=== PATIENT | female | born 1955 | race Caucasian/White ===

== ENCOUNTER → 2019-04-09 16:04 | Outpatient (CLI) | payer BC, SELFPAY ==
--- NOTE | 2019-04-09 16:18 | MM_ITS ---
MM Dig screening mamm BI w/CAD ORDERING PHYSICIAN : Sourav Hale MD PATIENT AGE: 63 years GENDER: Female COMPARISON: Baseline study with no previous for comparison. INDICATION: Routine screening mammogram. No hormones. No new complaints . Noncontributory family history.. TECHNIQUE: Standard CC and MLO images were obtained. R2 CAD reviewed. FINDINGS: Lower density breast bilaterally with generalized fatty replacement. No dominant mass nor suspicious calcifications either breast. No previous studies on this patient for comparison. Baseline mammogram. Right breast. Small benign dense calcification superior retroareolar region. Not of concern. Also note small likely dermal calcification towards the inferior mammary fold. This can be followed Left breast is ---------IMPRESSION: 1. No areas of significant concern Low-density breast. No mass lesions. . Follow-up in one year recommended BI-RADS Category: 2 Benign Finding(s) RECOMMENDED FOLLOW-UP: 1YR 1 YEAR FOLLOW-UP (A letter has been sent to the patient regarding results of the study.)
== END ==
PROVIDERS: PCP Family Medicine; Visit Provider Family Medicine
DX: Z12.31 Encounter for screening mammogram for malignant neoplasm of breast (principal)
CPT/HCPCS: 77067

== ENCOUNTER → 2019-07-24 13:08 | Outpatient (CLI) | payer BC, SELFPAY ==
[2019-07-24 13:11] LABS: Adenovirus F 40/41, stool Not Detected (NotDetected); Astrovirus Not Detected (NotDetected); Campylobacter Not Detected (NotDetected); Clostridium Difficile A/B, PCR Not Detected (NotDetected); Cryptosporidium Not Detected (NotDetected); Cyclospora Cayetanesis Not Detected (NotDetected); Entamoeba histolytica Not Detected (NotDetected); Enteroaggregative E coli Not Detected (NotDetected); Enteropathogenic E coli Not Detected (NotDetected); Enterotoxigenic E coli Not Detected (NotDetected); Giardia lamblia Not Detected (NotDetected); Plesimonas Shigalloides, PCR Not Detected (NotDetected); Rotavirus A Not Detected (NotDetected); Salmonella, PCR Not Detected (NotDetected); Sapovirus Not Detected (NotDetected); Shiga-like toxin E coli Not Detected (NotDetected); Shigella Enterovasive E coli Not Detected (NotDetected); Vibrio Cholerae Not Detected (NotDetected); Vibrio, PCR Not Detected (NotDetected); Yersinia Entercolitica, PCR Not Detected (NotDetected)
[2019-07-24 16:20] LABS: Norovirus Detected (NotDetected)
== END ==
PROVIDERS: Visit Provider Family Medicine
DX: K52.9 Noninfective gastroenteritis and colitis, unspecified (principal)
CPT/HCPCS: 87507

== ENCOUNTER → 2019-12-11 10:23 | Outpatient (CLI) | payer BC, SELFPAY ==
--- NOTE | 2019-12-11 10:31 | MR_ITS ---
PROCEDURE: MR HEAD/BRAIN WO/W CON CLINICAL INDICATION: VERTIGO, NAUSEA, BLURRY VISION, POSITIVE ROMBERG TEST Severe headache COMPARISON: No exams were available for comparison TECHNIQUE: Routine multiplanar multi echo sequences are performed without and with gadolinium enhancement. FINDINGS: No midline shift, mass effect, intracranial hemorrhage, or hydrocephalus. No evidence of acute infarction The cerebellopontine angles, cerebellum, and brainstem are unremarkable. There is normal bills-white matter differentiation with no abnormal white matter signal intensity evident. No enhancing lesions are evident. The pituitary, optic chiasm, corpus callosum, and craniocervical junction have an unremarkable appearance. No mastoid effusion or sinus air-fluid level. IMPRESSION: Negative MRI of the brain without and with contrast Dictated by: Du Condon MD 12/12/2019 15:43 Electronically signed by Du Condon MD in [place] 12/12/2019 15:43
== END ==
PROVIDERS: PCP Family Medicine; Visit Provider Physician Assistant
DX: R42 Dizziness and giddiness (principal); R11.0 Nausea; H53.8 Other visual disturbances; R51 Headache; R29.818 Other symptoms and signs involving the nervous system
CPT/HCPCS: 70553; A9576

== ENCOUNTER → 2019-12-18 09:35 | Outpatient (POV) | payer BC, SELFPAY | PROVIDERS: Visit Provider Otolaryngology | DX: Z00.00 Encounter for general adult medical examination without abnormal findings (principal) ==

== ENCOUNTER 2020-01-31 14:00 | Outpatient (RCR) | payer BC, SELFPAY | END 2020-01-31 14:20 | disposition home or self-care (01) | LOC: PT 14:00 | PROVIDERS: Visit Provider Otolaryngology | DX: R42 Dizziness and giddiness (principal); H81.11 Benign paroxysmal vertigo, right ear | CPT/HCPCS: 97112; 97163 ==

== ENCOUNTER → 2020-03-18 12:55 | Outpatient (CLI) | payer BC, SELFPAY ==
[2020-03-18 13:00] LABS: Adenovirus F 40/41, stool Not Detected (NotDetected); Astrovirus Not Detected (NotDetected); Campylobacter Not Detected (NotDetected); Cryptosporidium Not Detected (NotDetected); Cyclospora Cayetanesis Not Detected (NotDetected); Entamoeba histolytica Not Detected (NotDetected); Enteroaggregative E coli Not Detected (NotDetected); Enteropathogenic E coli Not Detected (NotDetected); Enterotoxigenic E coli Not Detected (NotDetected); Giardia lamblia Not Detected (NotDetected); Norovirus Not Detected (NotDetected); Plesimonas Shigalloides, PCR Not Detected (NotDetected); Rotavirus A Not Detected (NotDetected); Salmonella, PCR Not Detected (NotDetected); Sapovirus Not Detected (NotDetected); Shiga-like toxin E coli Not Detected (NotDetected); Shigella Enterovasive E coli Not Detected (NotDetected); Vibrio Cholerae Not Detected (NotDetected); Vibrio, PCR Not Detected (NotDetected); Yersinia Entercolitica, PCR Not Detected (NotDetected)
[2020-03-18 18:22] LABS: Clostridium Difficile A/B, PCR Detected (NotDetected)
== END ==
PROVIDERS: Visit Provider Family Medicine
DX: R19.7 Diarrhea, unspecified (principal); A04.72 Enterocolitis due to Clostridium difficile, not specified as recurrent
CPT/HCPCS: 87507

== ENCOUNTER → 2020-04-12 08:51 | Outpatient (CLI) | payer BC, SELFPAY ==
[2020-04-12 09:45] LABS: Blood Urea Nitrogen 10 mg/dl (7-17); Estimated Glomerular Filt Rate 56 ml/min (>60); GFR (African American) 68 ML/MIN (>60)
== END ==
PROVIDERS: Visit Provider Family Medicine
DX: R10.13 Epigastric pain (principal)
CPT/HCPCS: 36415; 82565; 84520

== ENCOUNTER → 2020-04-14 09:19 | Outpatient (CLI) | payer BC, SELFPAY ==
--- NOTE | 2020-04-14 09:28 | CT_ITS ---
PROCEDURE: CT ABDOMEN W CON CLINICAL HISTORY: EPIGASTRIC PAIN Epigastric pain with nausea, recent C diff infection, diarrhea COMPARISON: No exams were available for comparison TECHNIQUE: Axial images obtained with sagittal and coronal reformats. All CT scans at the facility use one or more dose reduction, viz: automated exposure control, ma/kV adjustment per patient size (including targeted exams where dose is matched to indication, i.e. head), or iterative reconstruction technique. FINDINGS: There is mild fatty infiltration of the liver. There are post cholecystectomy changes with mild biliary ectasia. There is calcification of the mitral valve annulus. The spleen, adrenal glands, and pancreas have an unremarkable appearance. There is mild thickening of the wall of the stomach at the gastric antrum with mild enhancement of the mucosa. No renal or ureteral calculi. No hydronephrosis. No intestinal obstruction or free air. The pelvis is not included in the exam. No acute bony findings. No evidence of aortic aneurysm. No evidence of celiac or SMA stenosis IMPRESSION: There is thickening of the antrum of the stomach with enhancement of the mucosa suggesting gastritis. Suggest follow-up to confirm resolution. Fatty infiltration of the liver Prior cholecystectomy Dictated by: Du Condon MD 04/15/2020 12:30 Electronically signed by Du Condon MD in [facility] 04/15/2020 12:30
== END ==
PROVIDERS: Visit Provider Family Medicine
DX: R10.13 Epigastric pain (principal)
CPT/HCPCS: 74160; Q9967

== ENCOUNTER → 2020-04-24 08:21 | Outpatient (CLI) | payer BC, SELFPAY ==
[2020-04-24 10:21] LABS: Coronavirus 19 IgG Antibody Negative (Negative); Coronavirus 19 IgM Antibody Negative (Negative)
== END ==
PROVIDERS: Visit Provider Internal Medicine Gastroenterology
DX: Z01.818 Encounter for other preprocedural examination (principal)
CPT/HCPCS: 36415; 86328

== ENCOUNTER 2020-04-25 06:42 | Day surgery (SDC) | payer BC, SELFPAY ==
--- NOTE | 2020-04-23 11:35 | SUR.PREOP ---
04/23/2020 @ 9318--PHONE CALL MADE TO PATIENT. PATIENT UNDERSTANDS THAT LAB WORK AND COVID TESTING NEEDS TO BE COMPLETED @ 0800 ON 04/24/2020. PATIENT UNDERSTANDS IF LAB WORK AND COVID-19 TESTS ARE NOT COMPLETED BY 12PM ON THAT DATE, THE SURGERY SCHEDULED WILL BE CANCELLED AND RESCHEDULED FOR ANOTHER TIME.
[2020-04-24 14:29] VITALS: BMI 34.8
[2020-04-25] VITALS (8 sets, daily range): BP systolic 101–118; BP diastolic 68–76; PULSE 64–82; RESP 18; TEMP 36.4–36.6; O2SAT 93–98
--- NOTE | 2020-04-25 07:43 | HMH.PROC ---
[facility] Procedure Note Procedure Note:: Upper Endoscopy Procedure Report: Esophagogastroduodenoscopy with cold biopsies Endoscopost: Jd Martell II, MD Referring Physician: Drew Hale MD Date of Procedure: April 25, 2020 Equipment: Olympus GIF 180 standard upper endoscope Sedation: MAC sedation Indications: Mrs. Orourke is a 64-year-old female who reports having C. difficile 3 months ago. She was treated with vancomycin. Subsequent to this she developed more excruciating epigastric abdominal pain. She states that she will develop postprandial nausea followed by epigastric pain and dyspepsia. She has had moderate bloating and gassiness. She also reports early satiety. She reports no heartburn, reflux, belching or dysphagia. She still has 1-3 bowel movements daily that are loose. She often has incomplete bowel evacuation. The patient did have a CT scan of the abdomen and pelvis that showed some thickening of the distal stomach consistent with antral gastritis. EGD is performed for further evaluation. The patient has had some weight loss. The patient's last colonoscopy was more than 5 years ago in [place]. The patient is a longstanding diabetic (type 2 diabetes mellitus). Procedure: Prior to the procedure, a history and physical exam was performed, and patient's medications and allergies were reviewed. The risks, benefits and alternatives of the sedation and procedure were discussed with the patient. All questions were answered and informed consent was obtained. The patient was brought to the procedure room. Patient identification and proposed procedure were verified by the physician and the nurse. The patient was placed in a left lateral decubitus position and the scope was passed under direct vision. Throughout the procedure, the patient's blood pressure, pulse, and oxygen saturations were monitored continuously. The upper GI endoscopy was accomplished without difficulty. The patient tolerated the procedure well. Findings: The scope was passed directly into the upper esophagus and advanced to the third portion of the duodenum. There was some duodenal lymphoid stasis but otherwise there was no evidence of any other mucosal abnormalities of the post bulbar duodenum. The scope was withdrawn through a normal duodenal bulb and pylorus into the stomach. There was marked retention of solid food in the antrum body and fundus consistent with gastric dysmotility and probable gastroparesis. There was some mild linear reactive gastropathy of the antrum. Cold biopsies were obtained. There was evidence of some chronic atrophic gastritis of the body and fundus of the stomach. Cold biopsies were taken from the proximal body of the stomach to rule out atrophic gastritis. Upon retroflexion there was no hiatal hernia. The scope was then withdrawn into the esophagus. There was no evidence of reflux esophagitis or Ballesteros's. There was no evidence of strictures or esophageal candidiasis. The remainder of the esophageal mucosa was normal. Impression: 1. Probable diabetic gastroparesis (retained gastric bezoar with evidence of gastric dysmotility) 2. Mild chronic atrophic gastritis with mild antral reactive gastropathy Plan: I will follow-up the biopsies. I will likely place the patient on metoclopramide. If the patient has atrophic gastritis, she has achlorhydria and I would discontinue the omeprazole. I would also consider stopping hyoscyamine which would reduce motility. We will discuss additional treatment of her diarrhea. She should be on Florastor (Saccharomyces) which is directly inhibitive to C. difficile. We will discuss additional treatment options.
[2020-04-25 08:57] LABS: POC Glucose,Bedside 159 (70-110)
== END 2020-04-25 09:34 | disposition home or self-care (01) ==
LOC: OUTP 06:43
PROVIDERS: PCP Family Medicine; Visit Provider Internal Medicine Gastroenterology
PROC: 0DJ08ZZ Inspection of Upper Intestinal Tract, Via Natural or Artificial Opening Endoscopic (ICD-10-PCS; CPT 43235; principal; 2020-04-25 08:00)
DX: K59.8 Other specified functional intestinal disorders (principal); K31.9 Disease of stomach and duodenum, unspecified; K29.40 Chronic atrophic gastritis without bleeding
CPT/HCPCS: 43239; 82962

== ENCOUNTER → 2020-06-12 10:45 | Outpatient (CLI) | payer BC, SELFPAY ==
[2020-06-13 17:12] LABS: Antiparietal Cell Antibody 84.6 Units (0.0-20.0)
== END ==
PROVIDERS: Visit Provider Specialist
DX: E53.8 Deficiency of other specified B group vitamins (principal)
CPT/HCPCS: 36415; 83516; 86340

== ENCOUNTER → 2020-06-16 13:07 | Outpatient (POV) | payer BC, SELFPAY | PROVIDERS: PCP Family Medicine; Visit Provider Nurse Practitioner Family | DX: Z00.00 Encounter for general adult medical examination without abnormal findings (principal) ==

== ENCOUNTER → 2020-06-23 09:08 | Outpatient (CLI) | payer BC, SELFPAY ==
--- NOTE | 2020-06-23 09:14 | NM_ITS ---
PROCEDURE: NM GASTRIC EMPTYING STUDY CLINICAL INDICATION: BLOATING,ABD PAIN,CONSTIPATION,RECTAL BLEEDING,DYSPEPSIA COMPARISON: No exams were available for comparison FINDINGS: Dose: 0.61 mCi technetium sulfur colloid in radial labeled meal. The 1/2 emptying time is normal at 68 minutes. 65 percent of the gastric contents had emptied at 90 minutes. Dynamic images show no evidence of gastroesophageal reflux. IMPRESSION: Normal gastric emptying time Dictated by: Du Condon MD 06/24/2020 07:20 Electronically signed by Du Condon MD in [place] 06/24/2020 07:20
--- NOTE | 2020-06-23 10:16 | HMH.ITSHM ---
Current Home Medications as stated by this patient Carol Orourke or housing management representative. [] levothyrxion lisinopril metformin
== END ==
PROVIDERS: PCP Family Medicine; Visit Provider Nurse Practitioner Family
DX: R10.84 Generalized abdominal pain (principal); R14.0 Abdominal distension (gaseous); K30 Functional dyspepsia; K59.00 Constipation, unspecified; K62.5 Hemorrhage of anus and rectum; Z12.11 Encounter for screening for malignant neoplasm of colon
CPT/HCPCS: 78264; A9541

== ENCOUNTER → 2020-07-15 09:50 | Outpatient (POV) | payer BC, SELFPAY ==
[2020-07-15 12:52] LABS: Coronavirus 19 IgG Antibody Negative (Negative); Coronavirus 19 IgM Antibody Negative (Negative)
== END ==
PROVIDERS: Internal Medicine Gastroenterology; Visit Provider Otolaryngology
DX: Z01.89 Encounter for other specified special examinations (principal); Z12.11 Encounter for screening for malignant neoplasm of colon
CPT/HCPCS: 36415; 86328

== ENCOUNTER 2020-07-18 06:48 | Day surgery (SDC) | payer BC, SELFPAY ==
[2020-07-09 10:33] VITALS: BMI 35.7
[2020-07-18] VITALS (7 sets, daily range): BP systolic 95–142; BP diastolic 52–80; PULSE 75–94; RESP 16–18; TEMP 36.2; O2SAT 97–98
[2020-07-18 07:31] LABS: POC Glucose,Bedside 204 (70-110)
--- NOTE | 2020-07-18 07:41 | SUR.PREOP ---
FSBS 204 R FEEBACK ONCOLOGY NURSE NAVIGATOR NOTIFIED, NO NEW ORDERS RECEIVED
--- NOTE | 2020-07-18 08:05 | P.PCN_ITS ---
[facility] Procedure Note Procedure Note:: Colonoscopy Procedure Report: Colonoscopy with cold snare polypectomy and monopolar coagulation/ablation to destruction of internal hemorrhoids Endoscopist: Jd Martell II, MD Referring physician: Gunnar Hale MD Date of Procedure: July 18, 2020 Equipment: Olympus 180 variable stiffness pediatric colonoscope Sedation: MAC sedation Indication: Mrs. Orourke is a 65-year-old female who is here for follow-up screening/surveillance colonoscopy. Her last colonoscopy was 5 years ago. She has had some fairly frequent bright red rectal bleeding that is on the toilet tissue but not in the toilet bowl. This may be hemorrhoidal. The patient has had some generalized dyspepsia with epigastric discomfort and some generalized abdominal discomfort. She reports bloating and gassiness.. She has incomplete bowel evacuation. She was started on MiraLAX plus Metamucil daily. She is also on buspirone, Reglan and Florastor. She reports no weight loss or family history of colon cancer. Procedure: Prior to the procedure, a history and physical exam was performed, and patient's medications and allergies were reviewed. The risks, benefits and alternatives of the sedation and procedure were discussed with the patient. All questions were answered and informed consent was obtained. The patient was brought to the procedure room. Patient identification and proposed procedure were verified by the physician and the nurse. The patient was placed in a left lateral decubitus position and the scope was passed under direct vision. Throughout the procedure, the patient's blood pressure, pulse, and oxygen saturations were monitored continuously. The colonoscopy was accomplished without difficulty. The patient tolerated the procedure well. Findings: On digital rectal examination there was normal rectal tone. There were no external hemorrhoids. The colonoscope was introduced through the anal canal to the rectum and advanced to the cecum. The ileocecal valve and appendiceal orifice were identified. The scope was advanced a short distance into the ileum which appeared grossly normal. The scope was then withdrawn into the colon. The cecum and ascending colon were normal. There were 2 colonic polyps in the transverse x1 (3 mm) and rectosigmoid x1 (4 mm) which were both removed via cold snare polypectomy. There were very mildly scattered diverticuli throughout the descending and sigmoid colon (LEFT colon). The rectum itself was normal. Upon retroflexion within the rectum there were grade 1-2 internal hemorrhoids. The hemorrhoids were ablated using monopolar ablation/coagulation with destruction of 3 columns of internal hemorrhoids. The preparation was excellent throughout with Filer Preparation Score of 9. The cecal time was 12 minutes. Impression: 1. Diminutive colonic polyps x2 2. Mild left-sided diverticulosis 3. Grade 1-2 internal hemorrhoids status post monopolar ablation/coagulation to destruction of the internal hemorrhoids (3 columns) Plan: I will follow up the polyp pathology and recommend repeat colonoscopy again in 7-10 years based upon the polyp histology. I would encourage continuation of a good bulking fiber bowel regimen twice daily on a long-term daily maintenance basis.
--- NOTE | 2020-07-18 08:08 | HMH.ANESCL ---
[facility] Anesthesia Checklist - Patient Identification Patient Identification: Arm Band - Structural Data Admitted From: Home Planned Operative Procedure/s: colonoscopy Consent for Planned Operative Procedure(s) Verified: Yes Verified Documents: Surgical Consent, History and Physical - NPO Status Verified Time NPO: 00:00 - Additional verifications Anesthesia Reactions: No - Airway Assessment C-Spine Mobility Assessed: Yes (mp2) TMJ Mobility Assessed: Yes Dentition: Good Dentition - Neurological Assessment Level of Consciousness: Awake, Alert - Anesthesia Plan Anesthesia Risk discussed: Yes Anesthesia Plan: Verified ASA Class: III Anesthesia Type: MAC [facility] History I have reviewed the patient's past medical history: Yes Medical History: Reports:: Diabetes Mellitus Type 2, Hyperlipidemia, Hypertension Denies:: Cancer, Diabetes Mellitus Type 1, Internal Pacemaker, MRSA, Seizures *Have you ever received a pneumonia vaccine?: Yes *Have you received a flu vaccine this season?: No Anesthesia experience/problems:: nac Laterality Cases: Bilateral: Carpal Tunnel Release Other Surgeries: Yes: Cholecystectomy, Colonoscopy, EGD, Hysterectomy-Total, Tubal Ligation. No: Pacemaker Amputation: No Fractures: No - *Social History Last grade of school completed: GED Smoking Status: Never smoker Alcohol Intake: never Substance Use Type: denies use *Occupational Status:: employed Housing: house Household Members: family *Travel in the last 8 weeks: None Family Hx:: Asthma, Cancer, Coronary Artery Disease, Diabetes, Hyperlipidemia, Hypertension, Stroke, Thyroid Disorder
== END 2020-07-18 09:25 | disposition home or self-care (01) ==
LOC: OUTP 06:49
PROVIDERS: PCP Family Medicine; Visit Provider Internal Medicine Gastroenterology
PROC: 0DJD8ZZ Inspection of Lower Intestinal Tract, Via Natural or Artificial Opening Endoscopic (ICD-10-PCS; CPT 45378; principal; 2020-07-18 08:00)
DX: Z12.11 Encounter for screening for malignant neoplasm of colon (principal); K63.5 Polyp of colon; K57.30 Diverticulosis of large intestine without perforation or abscess without bleeding; K64.0 First degree hemorrhoids; I10 Essential (primary) hypertension; E78.5 Hyperlipidemia, unspecified; E11.9 Type 2 diabetes mellitus without complications; E03.9 Hypothyroidism, unspecified; Z88.1 Allergy status to other antibiotic agents; Z98.51 Tubal ligation status; Z90.49 Acquired absence of other specified parts of digestive tract; Z90.710 Acquired absence of both cervix and uterus
CPT/HCPCS: 45385; 46930; 82962; J2704

== ENCOUNTER → 2020-07-29 10:41 | Outpatient (POV) | payer BC, SELFPAY | PROVIDERS: Visit Provider Otolaryngology | DX: Z00.00 Encounter for general adult medical examination without abnormal findings (principal) ==

== ENCOUNTER 2020-08-10 18:36 | Emergency (ER) | payer BC, SELFPAY ==
[2020-08-10 18:47] VITALS: BP 95/59; PULSE 94; RESP 18; TEMP 36.4; O2SAT 96; BMI 34.0
--- NOTE | 2020-08-10 18:55 | XR_ITS ---
PROCEDURE: XR CHEST PORTABLE CLINICAL HISTORY: cough/dyspnea COMPARISON: No exams were available for comparison FINDINGS: The cardiomediastinal silhouette and pulmonary vascularity are within normal limits. The lungs are clear without infiltrates, suspicious nodules, or pleural effusions. There is a calcified AP window node. There are moderate multilevel degenerate changes lower thoracic spine. No acute bony abnormalities. IMPRESSION: No acute findings. Dictated by: Dr. Reynaldo Carter MD 08/10/2020 19:40 Dr. Reynaldo Carter MD in [place] 08/10/2020 19:40
--- NOTE | 2020-08-10 18:56 | HMH.EDGENADL ---
ED Disposition Clinical Impression: URI (upper respiratory infection) Qualifiers: URI type: unspecified viral URI Qualified Code(s): J06.9 - Acute upper respiratory infection, unspecified Disposition: Home, Self-Care Condition on Discharge: Fair Instructions: DI for Muscle Weakness Referrals: Sourav Hale MD [Primary Care Provider] - - Critical Care Critical Care Time: No Attestation: On 08/10/20, the high probability of a clinically significant, sudden or life threatening deterioration of the following system(s) required my full and direct attention, intervention and personal management. The time I documented below is in addition to time spent performing reported procedures but includes the following listed in this critical care notation. Medical Decision Making - Medical Records Medical records reviewed: Yes: I reviewed the patient's medical records. - Michael Inquiry Pt receiving controlled substance: No Vital Signs: 08/10/20 18:47 08/10/20 19:51 Temperature 97.6 F Temperature Source Oral Pulse Rate [Radial] 94 H 89 Respiratory Rate 18 18 Blood Pressure [Right Arm] 95/59 L 135/76 Blood Pressure Mean [Right Arm] 71 95 Blood Pressure Source [Right Arm] Automatic Cuff Blood Pressure Position [Right Arm] Sitting 02 Sat by Pulse Oximetry 96 97 Oxygen Delivery Method Room Air - Lab Data Lab Results 08/10/20 19:10: WBC 4.6 L, RBC 4.61, Hgb 13.9, Hct 39.6, MCV 86.0, MCH 30.2, MCHC 35.1, RDW 13.1, Plt Count 90 L, MPV 9.4, Neut % (Auto) 55.7, Lymph % (Auto) 34.4, [place] % (Auto) 9.3, Eos % (Auto) 0.2, Baso % (Auto) 0.4, Neut # (Auto) 2.6, Lymph # (Auto) 1.6, [place] # (Auto) 0.4, Eos # (Auto) 0.0, Baso # (Auto) 0.0 08/10/20 19:10: Sodium 137, Potassium 3.8, Chloride 106, Carbon Dioxide 19 L, Anion Gap 15.8 H, BUN 25 H, Creatinine 1.70 H, Estimated Creat Clear 48, Estimated GFR 30 L, Est GFR ( Amer) 37 L, Glucose 265 H, Calcium 8.9, Total Bilirubin 0.8, AST 48 H, ALT 42, Alkaline Phosphatase 63, Total Protein 7.3, Albumin 3.8, Globulin 3.5 H, Albumin/Globulin Ratio 1.1 08/10/20 19:10: Lactate 1.8 08/10/20 19:10: Influenza Type A Ag Negative, Influenza Type B Ag Negative 08/10/20 19:17: VBG pH 7.35, VBG pCO2 31.3 L, VBG pO2 217.5 H, VBG HCO3 17.0 L, VBG Total CO2 18.0 L, VBG O2 Saturation 99.1 H, VBG Base Excess -8.5 L Result diagrams: 08/10/20 19:10 08/10/20 19:10 Orders (Tests/Meds): ED MEDICATIONS Generic Name Dose Route Start Last Admin Trade Name Freq PRN Reason Stop Dose Admin Sodium Chloride 1,000 mls @ 999 mls/hr 08/10/20 19:00 08/10/20 19:09 Sod Chlor 0.9% 1000ml Bag IV 08/10/20 20:00 999 mls/hr .Q1H1M CYNTHIA Administration ORDERS Category Date Time Status Covid-19 Nasal PCR Sendout [facility] Stat Lab 08/10/20 19:25 Received Blood Culture Stat Micro 08/10/20 19:10 Received Venous Blood Gas Stat RT 08/10/20 19:51 Ordered - Radiology Data #1 Image(s): Chest Image Reviewed: Yes I reviewed the patient's radiology results Preliminary Findings: Normal/NAD General Adult HPI - General Chief complaint: Weakness Stated complaint: Chills, aches, weakness Time Seen by Provider: 08/10/20 18:50 Mode of Arrival: Ambulatory Limitations: No Limitations Description of Symptoms (Recalled from ER Triage Doc. by RN): States she is weak, has a cough, nauseated. States that she was exposed to COVID on Tuesday. - History of Present Illness HPI narrative: This is a 65-year-old female presents with 2-day history of weakness, body aches, and fever/chills. Patient also reports cough with decreased appetite. She has had some loose stools as well but no abdominal pain or vomiting. Patient does report COVID 19 exposure. Patient denies significant dyspnea at present. - Related Data Home Medications Medication Instructions Recorded Confirmed atorvastatin 20 mg tablet 20 mg PO DAILY 04/26/19 08/21/20 dulaglutide 1.5 mg/0.5 mL 1.5 mg SQ QWEEK 03/23/19 07/18/20
[2020-08-10 19:18] LABS: VBG Base Excess -8.5 mmol/L (-2.4-2.3); VBG Oxygen Saturation 99.1 % (50-70); VBG PCO2 31.3 mmol/L (35-51); VBG PH 7.35 mmol/L (7.31-7.41); VBG PO2 217.5 mmol/L (28-40)
[2020-08-10 19:35] LABS: Basophils % 0.4 % (0.1-2.0); Chloride 106 mmol/L (98-107); Eosinophils % 0.2 % (0.1-12.0); Hematocrit 39.6 % (37.0-47.0); Hemoglobin 13.9 g/dL (12.2-16.2); Lymphocytes # 1.6 K/mm3 (0.7-4.5); Lymphocytes % 34.4 % (10-50); Mean Corpuscular HGB Conc 35.1 g/dL (31.8-35.4); Mean Corpuscular Hemoglobin 30.2 pg (27.0-31.2); Mean Platelet Volume 9.4 fl (7.4-10.4); Monocytes # 0.4 K/mm3 (0.1-1.0); Monocytes % 9.3 % (1.7-9.3); Neutrophils # 2.6 K/mm3 (1.8-7.8); Neutrophils % 55.7 % (37.0-80.0); Platelet Count 90 K/mm3 (142-424); Red Blood Count 4.61 M/mm3 (4.20-5.40); Red Cell Distribution Width 13.1 % (11.5-17.5); Sodium 137 mmol/L (136-145); White Blood Count 4.6 K/mm3 (4.8-10.8)
[2020-08-10 19:36] LABS: Potassium 3.8 mmoL/L (3.5-5.1)
[2020-08-10 19:38] LABS: Alanine Aminotransferase 42 U/L (12-78); Albumin Level 3.8 g/dl (3.5-5.0); Albumin/Globulin Ratio 1.1 (1.1-1.8); Alkaline Phosphatase 63 U/L (38-126); Anion Gap 15.8 mEq/L (5-15); Aspartate Amino Transferase 48 U/L (14-36); Bilirubin,Total 0.8 mg/dl (0.2-1.3); Blood Urea Nitrogen 25 mg/dl (7-17); Carbon Dioxide 19 mmol/L (22.0-30.0); Creatinine Clearance Estimated 48 mL/min (50-200); Estimated Glomerular Filt Rate 30 ml/min (>60); GFR (African American) 37 ML/MIN (>60); Globulin 3.5 g/dL (1.3-3.2); Total Protein,Serum 7.3 g/dl (6.3-8.2)
[2020-08-10 19:39] LABS: Calcium 8.9 mg/dl (8.4-10.2); Glucose 265 mg/dl (74-100)
[2020-08-10 19:49] LABS: Lactic Acid 1.8 mmol/L (0.7-2.1)
[2020-08-10 19:51] VITALS: BP 135/76; PULSE 89; RESP 18; O2SAT 97
[2020-08-10 20:07] VITALS: BP 135/82; PULSE 89; RESP 16; TEMP 37.2
[2020-08-12 16:06] LABS: Covid-19 Nasal PCR Sendout Lex Positive
== END 2020-08-10 20:09 | disposition home or self-care (01) ==
PROVIDERS: Emergency Provider Emergency Medicine; PCP Family Medicine
DX: J06.9 Acute upper respiratory infection, unspecified (principal); I10 Essential (primary) hypertension; E78.5 Hyperlipidemia, unspecified; Z90.49 Acquired absence of other specified parts of digestive tract; Z20.828 Contact with and (suspected) exposure to other viral communicable diseases
CPT/HCPCS: 71045; 80053; 82803; 83605; 85025; 87040; 87275; 87276; 96365; 99284; U0003; U0004

== ENCOUNTER 2020-09-24 10:00 | Outpatient (RCR) | payer BC, SELFPAY | END 2020-09-24 10:05 | disposition home or self-care (01) | LOC: PT 10:00 | PROVIDERS: PCP Family Medicine; Visit Provider Otolaryngology | DX: H81.11 Benign paroxysmal vertigo, right ear | CPT/HCPCS: 97140; 97163 ==

== ENCOUNTER → 2020-11-11 10:15 | Outpatient (POV) | payer BC, SELFPAY | PROVIDERS: Visit Provider Otolaryngology | DX: Z00.00 Encounter for general adult medical examination without abnormal findings (principal) ==

== ENCOUNTER → 2021-02-10 09:04 | Outpatient (POV) | payer BC, SELFPAY | PROVIDERS: Visit Provider Otolaryngology | DX: Z00.00 Encounter for general adult medical examination without abnormal findings (principal) ==

== ENCOUNTER → 2021-05-20 09:42 | Outpatient (CLI) | payer BC, SELFPAY ==
--- NOTE | 2021-05-20 09:46 | MM_ITS ---
PROCEDURE INFORMATION: Exam: Screening 3D Mammography Exam date and time: 05/20/2021 9:46 AM Age: 65 years old Clinical indication: Encounter for screening mammogram for malignant neoplasm of breast TECHNIQUE: Imaging protocol: Screening tomosynthesis and 2D mammography including computer-aided detection (CAD) when performed. COMPARISON: DIG MAMM-SCREEN SID 04/09/2019 4:30 PM FINDINGS: MAMMOGRAPHY: Breast composition: The breast tissue is composed of scattered areas of fibroglandular density. Mass: None. Architectural distortion: None. Calcifications: No suspicious calcifications. Asymmetric density: None. Skin thickening: None. Axillary adenopathy: None. IMPRESSION: No mammographic evidence of malignancy. Annual screening is recommended unless otherwise clinically indicated. ASSESSMENT: BI-RADS Category 1: Negative
== END ==
PROVIDERS: PCP Family Medicine; Visit Provider Family Medicine
DX: Z12.31 Encounter for screening mammogram for malignant neoplasm of breast (principal)
CPT/HCPCS: 77063; 77067

== ENCOUNTER → 2021-09-01 09:07 | Outpatient (POV) | payer BC, SELFPAY | PROVIDERS: Visit Provider Otolaryngology | DX: Z00.00 Encounter for general adult medical examination without abnormal findings (principal) ==

== ENCOUNTER → 2021-12-05 10:38 | Outpatient (CLI) | payer BC, SELFPAY ==
[2021-12-05 15:02] LABS: Basophils # 0.1 K/mm3 (0-0.2); Basophils % 0.7 % (0.1-2.0); Eosinophils # 0.1 K/mm3 (0.0-0.4); Eosinophils % 0.8 % (0.1-12.0); Hematocrit 40.7 % (37.0-47.0); Hemoglobin 13.5 g/dL (12.2-16.2); Lymphocytes # 1.4 K/mm3 (0.7-4.5); Mean Corpuscular HGB Conc 33.2 g/dL (31.8-35.4); Mean Corpuscular Hemoglobin 29.4 pg (27.0-31.2); Mean Corpuscular Volume 88.6 fl (81-99); Mean Platelet Volume 10.2 fl (7.4-10.4); Monocytes # 0.5 K/mm3 (0.1-1.0); Monocytes % 6.2 % (1.7-9.3); Neutrophils # 6.5 K/mm3 (1.8-7.8); Neutrophils % 76.3 % (37.0-80.0); Platelet Count 128 K/mm3 (142-424); Red Cell Distribution Width 13.9 % (11.5-17.5); White Blood Count 8.5 K/mm3 (4.8-10.8)
== END ==
PROVIDERS: PCP Family Medicine; Visit Provider Physician Assistant
DX: Z20.822 Contact with and (suspected) exposure to COVID-19 (principal)
CPT/HCPCS: 85025; C9803; U0003; U0005

== ENCOUNTER → 2021-12-11 13:17 | Outpatient (CLI) | payer BC, SELFPAY ==
[2021-12-11 13:37] LABS: Adenovirus,PCR Not Detected (NotDetected); Coronavirus 229E Not Detected (NotDetected); Coronavirus NL63 Not Detected (NotDetected); Coronavirus OC43 Not Detected (NotDetected); Coronovirus HKU1,PCR Not Detected (NotDetected); Human Metapneumovirus Not Detected (NotDetected); Influenza A, PCR Not Detected (NotDetected); Influenza AH1, 2009 Not Detected (NotDetected); Influenza AH1, PCR Not Detected (NotDetected); Influenza AH3,PCR Not Detected (NotDetected); Influenza B, PCR Not Detected (NotDetected); Rhinovirus/Enterovirus Not Detected (NotDetected)
[2021-12-11 13:38] LABS: Bordetella Pertussis Not Detected (NotDetected); Chlamydophila Pneumoniae, PCR Not Detected (NotDetected); Coronavirus 19, PCR Not Detected (NotDetected); Mycoplasma Pneumoniae, PCR Not Detected (NotDetected); Parainfluenza 1, PCR Not Detected (NotDetected); Parainfluenza 2, PCR Not Detected (NotDetected); Parainfluenza 3, PCR Not Detected (NotDetected); Parainfluenza 4, PCR Not Detected (NotDetected)
[2021-12-11 14:27] LABS: Basophils # 0.1 K/mm3 (0-0.2); Basophils % 0.9 % (0.1-2.0); Eosinophils # 0.1 K/mm3 (0.0-0.4); Eosinophils % 0.4 % (0.1-12.0); Hemoglobin 14.1 g/dL (12.2-16.2); Lymphocytes # 3.2 K/mm3 (0.7-4.5); Lymphocytes % 25.3 % (10-50); Mean Corpuscular HGB Conc 34.3 g/dL (31.8-35.4); Mean Corpuscular Hemoglobin 29.8 pg (27.0-31.2); Mean Corpuscular Volume 86.8 fl (81-99); Mean Platelet Volume 10.1 fl (7.4-10.4); Monocytes # 0.8 K/mm3 (0.1-1.0); Monocytes % 6.5 % (1.7-9.3); Neutrophils # 8.4 K/mm3 (1.8-7.8); Neutrophils % 66.9 % (37.0-80.0); Platelet Count 180 K/mm3 (142-424); Red Blood Count 4.73 M/mm3 (4.20-5.40); Red Cell Distribution Width 13.7 % (11.5-17.5); White Blood Count 12.6 K/mm3 (4.8-10.8)
[2021-12-11 15:32] LABS: Respiratory Syncytial Virus Detected (NotDetected)
== END ==
PROVIDERS: PCP Family Medicine; Visit Provider Physician Assistant
DX: Z20.822 Contact with and (suspected) exposure to COVID-19 (principal); B97.4 Respiratory syncytial virus as the cause of diseases classified elsewhere
CPT/HCPCS: 36415; 85025; 87581; 87632; 87798; C9803; U0003; U0005

== ENCOUNTER 2023-03-08 06:52 | Day surgery (SDC) | payer MEDICARE, SELFPAY ==
[2023-03-02 12:23] VITALS: BMI 31.6
[2023-03-08] VITALS (7 sets, daily range): BP systolic 113–135; BP diastolic 65–72; PULSE 69–81; RESP 16–18; TEMP 36.1–36.4; O2SAT 98–100
[2023-03-08 07:30] LABS: POC Glucose,Bedside 115 (70-110)
== END 2023-03-08 08:15 | disposition home or self-care (01) ==
PROVIDERS: PCP Family Medicine; Visit Provider Ophthalmology
DX: E11.36 Type 2 diabetes mellitus with diabetic cataract (principal); H25.9 Unspecified age-related cataract; Z79.899 Other long term (current) drug therapy
CPT/HCPCS: 66984; 82962; V2632

== ENCOUNTER 2023-03-22 06:56 | Day surgery (SDC) | payer MEDICARE, SELFPAY ==
[2023-03-18 12:52] VITALS: BMI 32.9
[2023-03-22] VITALS (7 sets, daily range): BP systolic 122–135; BP diastolic 68–78; PULSE 79–86; RESP 16–18; TEMP 36.1; O2SAT 99–100
[2023-03-22 07:36] LABS: POC Glucose,Bedside 130 (70-110)
== END 2023-03-22 08:40 | disposition home or self-care (01) ==
LOC: OR 06:57
PROVIDERS: PCP Family Medicine; Visit Provider Ophthalmology
DX: E11.36 Type 2 diabetes mellitus with diabetic cataract (principal); H25.9 Unspecified age-related cataract
CPT/HCPCS: 66984; 82962; V2632

== ENCOUNTER → 2023-06-20 07:52 | Outpatient (CLI) | payer MEDICARE, SELFPAY ==
--- NOTE | 2023-06-20 07:55 | MM_ITS ---
PROCEDURE INFORMATION: Exam: MG Bilateral Screening 3D Mammography Exam date and time: 06/20/2023 7:46 AM Age: 68 years old Clinical indication: Screening examination TECHNIQUE: Imaging protocol: Bilateral Screening tomosynthesis and 2D mammography including computer-aided detection (CAD) when performed. COMPARISON: 1. MG MM DIG SCREENING MAMM BI W/CAD 05/20/2021 9:44 AM 2. MG DIG MAMM-SCREEN SID 04/09/2019 4:30 PM FINDINGS: MAMMOGRAPHY: Breast composition: There are scattered areas of fibroglandular density. Mass: None. Architectural distortion: None. Calcifications: No suspicious calcifications. Asymmetric density: None. Skin thickening: None. Axillary adenopathy: None. IMPRESSION: No mammographic evidence of malignancy. Annual screening is recommended unless otherwise clinically indicated. ASSESSMENT: BI-RADS Category 1: Negative
== END ==
PROVIDERS: PCP Family Medicine; Visit Provider Family Medicine
DX: Z12.31 Encounter for screening mammogram for malignant neoplasm of breast (principal)
CPT/HCPCS: 77063; 77067

== ENCOUNTER 2023-08-26 08:05 | Day surgery (SDC) | payer MEDICARE, SELFPAY ==
[2023-08-23 13:54] VITALS: BMI 33.5
[2023-08-26 08:33] VITALS: BP 132/68; PULSE 107; RESP 18; TEMP 36.4; O2SAT 96
--- NOTE | 2023-08-26 08:58 | SUR.PREOP ---
Spoke w/ T ANA LAURA Lucio about pt's blood sugar in pre op. V/O for pt to receive 5 units of regular insulin IVP x1 now. RB+V. 0853 - 5 units of regular insulin admin per JAN, verified w/ LB BRICE Reddy
--- NOTE | 2023-08-26 09:21 | P.PCN_ITS ---
Procedure: Date: 08/26/23 Patient Date of :: 1955 Procedure Performed:: Total colonoscopy to terminal ileum Indications:: Patient is a 68-year-old female with prior history of polyps. I had previously done a colonoscopy on the patient's sister who had advanced rectal cancer. She had a colonoscopy in approximately 2014 at which time she reportedly had polyps removed. I had seen the patient in February 2019 and had planned colonoscopy but she had never followed through with this.. Dr. Martell had done an EGD in March 2020 for melena. He had also performed a colonoscopy on 07/18/2020 at which time she was found to have a tubular adenoma. Recommendations were for follow-up colonoscopy 7 to 10 years. Performing Provider:: Estuardo Matson MD Referring Provider:: Jorge Gaxiola MD Sedation:: MAC sedation Procedure:: Patient history was obtained and appropriate physical examination was performed. Patient's medications and allergies were reviewed. Informed consent was obtained after explaining the benefits, alternatives, and risks of the procedure including, but not limited to, bleeding, perforation, missed lesions, and adverse reaction to anesthesia medications. Patient was transported to endoscopy procedure room. Patient was connected to monitoring devices. Throughout the procedure the patient's blood pressure, pulse, and oxygen saturations were monitored continuously. Patient identi fication and planned procedure were verified by the staff. Patient was positioned in lateral decubitus position. Digital anorectal exam was performed. Variable stiffness Olympus colonoscope was inserted and advanced under direct visualization to the cecum. Adequacy of the colonic preparation was noted. The colonoscope was advanced a short distance into the terminal ileum. The colonoscope was then slowly withdrawn while carefully examining the color, texture, anatomy, and integrity of the mucosoa circumferentially. Within the rectum retroflexion was performed. Colonoscope was then withdrawn. . Findings:: She had a few diverticuli. No polyps were noted Recommendations:: Given prior history and family history recommend repeat colonoscopy 3 to 5 years Complications:: None immediate Estimated blood obtained (mL): 0 Colonoscopy Component Colonoscopy Component Was a colonoscopy performed during today's procedure?: Yes Recommended follow up colonoscopy of at least 10 years?: No If no, follow up colonoscopy recommended in ___ years?: 5 Reason for not recommending >/= 10 yr follow-up interval?: Family history
--- NOTE | 2023-08-26 09:22 | P.PNANES_ITS ---
[facility] Disclaimer: The information contained in this section may have been updated after the patient was seen, as this information can be updated by other users. Medical History Cataract Hyperlipidemia Hypertension Hypothyroid Surgical History History of cholecystectomy History of hysterectomy Family History Other Family history of cancer Family history of stroke Social History Smoking Status: Never smoker alcohol intake: never substance use type: denies use current occupational status: retired Travel in the last 8 weeks: None household members: family housing: house lives independently: Yes education level: high school service: No [place] [facility]: No caffeine: Yes do you feel safe at home: Yes victim of physical abuse: No victim of emotional abuse: No victim of sexual abuse: No would you like helpful sources: No [facility] Anesthesia Checklist Patient Identification Patient Identification: Arm Band and Verbal (Name & ) Structural Data Admitted From: Home Planned Operative Procedure/s: Colonoscopy Consent for Planned Operative Procedure(s) Verified: Yes NPO Status Verified Time NPO: 00:00 Additional verifications Anesthesia Reactions: No Airway Assessment Mallampati Score:: Class II C-Spine Mobility Assessed: Yes TMJ Mobility Assessed: Yes Dentition: Good Dentition Neurological Assessment Level of Consciousness: Awake Hx Seizures: No Numbness or tingling in extremities: No Anesthesia Plan Anesthesia Risk discussed: Yes Anesthesia Plan: Verified ASA Class: III Anesthesia Type: MAC
[2023-08-26 09:35] VITALS: O2SAT 97
[2023-08-26 10:02] VITALS: BP 86/66; PULSE 96; RESP 16; TEMP 36.1; O2SAT 96
[2023-08-26 10:12] VITALS: BP 85/63; PULSE 89; RESP 16; O2SAT 97
[2023-08-26 10:22] VITALS: BP 114/70; PULSE 101; RESP 18; O2SAT 99
[2023-08-26 10:32] VITALS: BP 138/74; PULSE 98; RESP 18; TEMP 36.1; O2SAT 99
[2023-08-27 09:30] LABS: POC Glucose,Bedside 295 (70-110)
== END 2023-08-26 10:32 | disposition home or self-care (01) ==
PROVIDERS: PCP Family Medicine; Visit Provider Surgery
PROC: 0DJD8ZZ Inspection of Lower Intestinal Tract, Via Natural or Artificial Opening Endoscopic (ICD-10-PCS; CPT G0105; principal; 2023-08-26 09:30)
DX: Z12.11 Encounter for screening for malignant neoplasm of colon (principal); Z86.010 Personal history of colon polyps; E11.9 Type 2 diabetes mellitus without complications
CPT/HCPCS: G0105; 82962; J2704

== ENCOUNTER 2024-12-26 14:50 | Outpatient (CLI) | payer MEDICARE, SELFPAY ==
[2024-12-26 14:58] LABS: Coronavirus 19, PCR Not Detected (NotDetected); Human Rhinovirus Not Detected (NotDetected); Influenza B, PCR Not Detected (NotDetected); Respiratory Syncytial Virus Not Detected (NotDetected)
[2024-12-26 17:04] LABS: Influenza A, PCR Detected (NotDetected)
== END 2024-12-26 23:59 | disposition home or self-care (01) ==
LOC: LAB 14:53
PROVIDERS: PCP Family Medicine; Visit Provider Family Medicine
DX: J06.9 Acute upper respiratory infection, unspecified (principal)
CPT/HCPCS: 87631

== ENCOUNTER 2025-01-28 14:09 | Outpatient (CLI) | payer MEDICARE, SELFPAY ==
--- NOTE | 2025-01-28 14:17 | MM_ITS ---
PROCEDURE INFORMATION: Exam: MG Bilateral Screening 3D Mammography Exam date and time: 01/28/2025 2:22 PM Age: 69 years old Clinical indication: Screening examination TECHNIQUE: Imaging protocol: Bilateral Screening tomosynthesis and 2D mammography including computer-aided detection (CAD) when performed. COMPARISON: 1. MG MM DIG SCREENING MAMM BI W/CAD 06/20/2023 7:46 AM 2. MG MM DIG SCREENING MAMM BI W/CAD 05/20/2021 9:44 AM FINDINGS: MAMMOGRAPHY: Breast composition: There are scattered areas of fibroglandular density. Mass: None. Architectural distortion: None. Calcifications: No suspicious calcifications. Asymmetric density: None. Skin thickening: None. Axillary adenopathy: None. IMPRESSION: No mammographic evidence of malignancy. Annual screening is recommended unless otherwise clinically indicated. ASSESSMENT: BI-RADS Category 1: Negative.
== END 2025-01-28 23:59 | disposition home or self-care (01) ==
LOC: RAD 14:10
PROVIDERS: PCP Family Medicine; Visit Provider Family Medicine
DX: Z12.31 Encounter for screening mammogram for malignant neoplasm of breast (principal)
CPT/HCPCS: 77063; 77067

== ENCOUNTER 2025-05-17 08:56 | Outpatient (CLI) | payer MEDICARE, SELFPAY ==
--- OUTSIDE RECORDS SUMMARY | 2025-05-02 06:45 | XMS_ITS ---
Author Organization [facility] Address [address] [facility] [address] [place] [id number] Care Team Providers Care Police Worker Name Role Phone Jorge Gaxiola Primary Care Provider Zeina Hale [phone] Allergies Allergen (clinical drug ingredient) Drug/Non Drug Allergy documented on EMR Reaction Allergy Type Onset Date Status amoxicillin Amoxicillin kidney infection Drug Allergy Active Results Component Value Reference Range Notes Urinalysis - Inhouse Reviewed date:05/02/2025 12:41:42 PM Interpretation: Performing Lab: Notes/Report: Color/Clarity dark yellow/clear Leuk Neg Nitrite Neg Urobili 3.2 Protein Trace pH 5.5 Blood Neg Sp. Gr. 1.025 Ketone 2+ Bili 1+ Gluc 2+ P-Culture, Urine Reviewed date:05/07/2025 09:19:52 AM Interpretation:no growth Performing Lab: Notes/Report: Test performed by [email or web address] [address] [place] [address] , [address], [place] [address] Geraldo Valderrama MD, Pallet Sorter CLIA: [id number] Specimen Source Urine - Void Culture, Urine See Below Final Report : No growth REASON FOR VISIT poss kidney infection Medications Medication SIG (Take, Route, Frequency, Duration) Notes Start Date End Date Status Metoclopramide HCl 5 MG 1 mL before meal s Orally four times a day as needed for 90 days Active Lisinopril 10 MG 1 tab(s) orally once a day for 90 days Active busPIRone HCl 10 MG TAKE 1 TABLET TWICE DAILY for 30 Active Accu-Chek Guide Test - TEST BLOOD SUGAR EVERY DAY OR DIRECTED for 90 Active Accu-Chek Softclix Lancets - TEST BLOOD SUGAR EVERY DAY OR DIRECTED for 90 Active Atorvastatin Calcium 20 MG 1 tab(s) oral ly once a day (at bedtime) for 90 days Active metFORMIN HCl ER 500 MG 2 tab(s) orally Two times a day for 90 days Active Levothyroxine Sodium 88 MCG 1 tab(s) ora lly once a day for 90 days Active DropSafe Alcohol Prep 70 % USE DIRECT ED TWO TIMES DAILY for 90 Active valACYclovir HCl 1 GM 2 tablets Orally t wice a day for 1 days 05/02/2025 Active Accu-Chek Guide w/Device as directed for 30 day(s) 01/04/2024 Active Meclizine HCl 25 MG 1 tab(s) orally 3 ti mes a day prn Active Ondansetron HCl 4 MG 1 tab(s) orally iliana ry 8 hours as needed 04/15/2023 Active Ozempic (1 MG/DOSE) 4 MG/3ML 1 mg Subcutaneous once weekly 05/03/2024 Active Diflucan 150 MG 1 tablet Orally maxim y for 1 days 05/02/2025 Active Problems Problem Type SNOMED Code ICD Code Onset Dates Problem Status W/U Status Risk Notes Problem [id number] Herpes labialis (B00.1) Active confirmed Problem 05498049 Type 2 diabetes mellitus with other circulatory complications (E11.59) Active confirmed Vital Signs Blood pressure systolic 140 mm Hg 05/02/20 25 Blood pressure diastolic 70 mm Hg 025 Heart Rate 87 /min 05/02/2025 Height 63.50 in 05/02/2025 Weight 199 lbs 05/02/2025 BMI 34.69 kg/m2 05/02/2025 Encounters Encounter Location Date Provider Diagnosis [facility] [address] [place], [place] [id number] 05/02/2025 Jorge [place] Dysuria R30.0 ; Herp es labialis B00.1 ; Excessive wax in left ear H61.22 ; Type 2 diabetes mellitus without complication E11.9 ; Acquired hypothyroidism E03.9 ; Pure hypercholesterolemia E78.00 ; HTN (hypertension) I10 ; Type 2 diabetes mellitus with diabetic mononeuropathy, unspecified whether buttermaker continuous churn insulin use E11.41 ; Type 2 diabetes mellitus with other circulatory complications E11.59 and Non morbid obesity E66.9 Assessments Encounter Date Diagnosis (ICD Code) Assessment Notes Treatment Notes Treatment Clinical Notes Section Notes 05/02/2025 Dysuria (ICD-10 - R30.0) 05/02/2025 Herpes labialis (ICD -10 - B00.1) 05/02/2025 Excessive wax in lef t ear (ICD-10 - H61.22) 05/02/2025 Type 2 diabetes sondra itus without complication (ICD-10 - E11.9) 05/02/2025 Acquired hypothyroid ism (ICD-10 - E03.9) 05/02/2025 Pure hypercholesterolemia (ICD-10 - E78.00) 05/02/2025 HTN (hypertension) (ICD-10 - I10) 05/02/2025 Type 2 diabetes sondra itus with diabetic mononeuropathy, unspecified whether skilled nursing insulin use (ICD-10 - E11.41) 05/02/2025 Type 2 diabetes sondra itus with other circulatory complications (ICD-10 - E11.59) 05/02/2025 Non morbid obesity (ICD-10 - E66.9) Plan Of Treatment Medication Medication Name Sig Start Date Stop Date Notes valACYclovir HCl 1 GM 2 tablets Orally t wice a day for 1 days 05/02/2025 Diflucan 150 MG 1 tablet Orally daily for 1 days Next Appt Details Follow Up: via phone to repo rt test results, Reason: Progress Notes * Carol OROURKE GDOB:1954 (69 yo F)Acc No.[id number]:05/02/2025 Progress Notes Patient: Carol LOZADA Provider: Jama Gaxiola M.D. :1955 A ge:69 Y S ex:Female Date:05/02/2025 Address:[address], [place], [id number] Subjective: * Chief Complaints: * 1 . Poss kidney infection. * HPI: U rology: 69 year old female presents with c/o burning sensation P t complains of burning with urination since Tuesday. E NT/respiratory: c/o ear stopped up l eft. * ROS: C ARDIOLOGY: no D izziness. n o C hest pain. D ERMATOLOGY: no R faviola. n o H malathi. G ASTROENTEROLOGY: no N ausea. n o V omiting. * Medical History: H ypertension, Hypothyroidism, Type 2 Diabetes, Head CT, Neg, 05/2014, 20-29% carotid stenosis 12/2016, EMG/NCV Bilateral Moderate Carpel Tunnel, 01/10/2017, Declared disabled 2021 due to chronic vertigo, Vitamin B 12 deficiency, Vitamin D deficiency. * Surgical History: H ysterectomy Abdominal 2000, Tubal , Cataract x2 02/2023, colonoscopy 07/18/2020. * Hospitalization/Major Diagno stic Procedure: D enies Past Hospitalization. * Family History: F ather: alive. M other: , COPD, cancer. 4 brother(s) , 4 sister(s) - healthy. 1 daughter(s) - healthy. . * Social History: C URRENT TOBACCO USE S moking Status: Patient does NOT smoke. C affeine: yes, frequency:occasionally. Marital Status: . Past smoking status: no. Alcohol: No. * Medications: T aking Accu-Chek Guide w/Device Kit as directed , Taking Ozempic (1 MG/DOSE) 4 MG/3ML Solution Pen-injector 1 mg Subcutaneous once weekly , Taking Meclizine HCl 25 MG Tablet 1 tab(s) orally 3 times a day prn , Taking Ondansetron HCl 4 MG Tablet 1 tab(s) orally every 8 hours as needed , Taking DropSafe Alcohol Prep 70 % Pad USE DIRECTED TWO TIMES DAILY , Taking metFORMIN HCl ER 500 MG Tablet Extended Release 24 Hour 2 tab(s) orally Two times a day , Taking Levothyroxine Sodium 88 MCG Tablet 1 tab(s) orally once a day , Taking Atorvastatin Calcium 20 MG Tablet 1 tab(s) orally once a day (at bedtime) , Taking Lisinopril 10 MG Tablet 1 tab(s) orally once a day , Taking Metoclopramide HCl 5 MG Tablet 1 mL before meals Orally four times a day as needed , Taking Accu-Chek Guide Test - Strip TEST BLOOD SUGAR EVERY DAY OR DIRECTED , Taking Accu-Chek Softclix Lancets - Miscellaneous TEST BLOOD SUGAR EVERY DAY OR DIRECTED , Taking busPIRone HCl 10 MG Tablet TAKE 1 TABLET TWICE DAILY , Discontinued Tamiflu 75 MG Capsule 1 capsule Orally Twice a day , Medication List reviewed and reconciled with the patient * Allergies: A moxicillin: kidney infection. Objective: * Vitals: W t: 199, Temp: 98.3, BP: 140/70, HR: 87, Nurse: maura, Ht: 63.50, BMI:34.69. * Examination: G eneral Examination: General Appearance: N AD. HEENT: l eft auditory canal obstructed by cerumen. Oral cavity: s mall reddened lesion over the right lower lip. Heart: R SR. Lungs: c lear to auscultation. Back: n o CVA tenderness. Assessment: * Assessment: 1. D ysuria - R30.0 (Primary) 2 . H erpes labialis - B00.1 3 . E xcessive wax in left ear - H61.22 4 . T ype 2 diabetes mellitus without complication - E11.9 5 . A cquired hypothyroidism - E03.9 6 . Pure hypercholesterolemia - E78.00 7 . H [place] (hypertension) - I10 8 . T ype 2 diabetes mellitus with diabetic mononeuropathy, unspecified whether buttermaker continuous churn insulin use - E11.41 9 . T ype 2 diabetes mellitus with other circulatory complications - E11.59 1 0. N on morbid obesity - E66.9 Plan: * Treatment: Value Reference Range C ulture, Urine See Below - * S pecimen Source Urine - Void - * Susana Reddy 05/07/2025 09:19: 31 AM EDT > Pt informed ?LAB: Urinalysis - Inhouse (Collection Date & Time - 05/02/2025)* Value Reference Range C olor/Clarity dark yellow/clear * L euk Neg * N itrite Neg * U robili 3.2 * P rotein Trace * p H 5.5 * B lood Neg * S p. Gr. 1.025 * K etone 2+ * B yoshi 1+ * G froy 2+ * Susana Reddy 05/02/2025 10:32:5 0 AM EDT > Provider reviewed results while patient in office. 2.?Herpes labialis? Start valACYclovir HCl Tablet, 1 GM, 2 tablets, Orally, twice a day, 1 days, 4 Tablet, Refills 0. ? * Procedure Codes: 6 9210 EAR IRRIGATION, G2211 Complex e/[place], [address] Urinalysis, no micro, 1036F TOBACCO NON-USER, G8753 MOST RECENT SYSTOLIC BP >= 140MM HG, G8754 MOST RECENT DIASTOLIC BP < 90MM HG, 3017F COLORECTAL CA SCREEN DOC REV * Preventive Medicine: Screening / Special Tests: C olonoscopy , polyps, diverticulosis, hemorrhoids, repeat 7-10 years. * Follow Up: v ia phone to report test results * Billing Information: * Visit Code: 90173 Office Visit, Est Pt., Level 3. Modifiers: 25 * Procedure Codes: 34660 EAR IRRIGATION. G2211 Complex e/[place]. [address] Urinalysis, no micro. 1036F TOBACCO NON-USER. G8753 MOST RECENT SYSTOLIC BP >= 140MM HG. G8754 MOST RECENT DIASTOLIC BP < 90MM HG. 3017F COLORECTAL CA SCREEN DOC REV. * Electronic signature of Yoly Gaxiola MD on 05/17/2025 at 08:58 AM EDT Sign off status: Pending * Provider: Jama Gaxiola M.D. Date: 0 05/02/2025 Generated for Alvaro boston/Mark/Talhaitting on: 0 05/17/2025 08:58 AM EDT History and Physical Notes * HPI (History of Present Illness) Category Sub-Category Detail Notes Category Not es ENT/respiratory ear stopped up left Urology burning sensation Pt complains o f burning with urination since Tuesday Examination Category Sub-Category Detail Notes Category Not es General Examination HEENT: left state auditor y canal obstructed by cerumen Heart: RSR Lungs: clear to auscultatio n General Appearance: NAD Oral cavity: small reddened lesio n over the right lower lip Back: no CVA tenderness
--- OUTSIDE RECORDS SUMMARY | 2025-05-04 10:25 | XMS_ITS ---
Author Organization [facility] Address [address] [facility] [address] [facility] [address] [place] [id number] Care Team Providers Care Scarifier Operator Name Role Phone Jorge Gaxiola Primary Care Provider [phone] Zeina Hale Unavailable [phone] REASON FOR VISIT due for screening Encounters Encounter Location Date Provider Diagnosis [facility] [address] [facility] [address] [facility] [address] [place] [id number] 05/04/2025 Jorge Gaxiola Osteopenia M8 5.80 Assessments Encounter Date Diagnosis (ICD Code) Assessment Notes Treatment Notes Treatment Clinical Notes Section Notes 05/04/2025 Osteopenia (ICD-10 - M85.80) Plan Of Treatment Pending Test Test Name Order Date Bone density 05/04/2025 Progress Notes * Carol OROURKE GDOB:1954 (69 yo F)Acc No.[id number]:05/04/2025 Patient: Chelsie COLBERT Carol G :1955 A ge:69 Y S ex:Female Address:[address] [place], [address] Subjective: * Chief Complaints: * D ue for screening * Medical History: * Surgical History: * Hospitalization/Major Diagno stic Procedure: * Medications: Objective: * Vitals: * Physical Examination: Assessment: * Assessment: 1. O steopenia - M85.80 (Primary) Plan: * Treatment: * Procedure Codes: * true * Date: Generated for Printi ng/Faxing/eTransmitting on: 0 05/17/2025 08:58 AM EDT
--- OUTSIDE RECORDS SUMMARY | 2025-05-08 10:00 | XMS_ITS ---
Author Organization [facility] Address [address] [facility] [address] [facility] [address] [place] [id number] Care Team Providers Care Dean Of Graduate Studies Name Role Phone Jorge Gaxiola Primary Care Provider Zeina Hale [phone] Allergies Allergen (clinical drug ingredient) Drug/Non Drug Allergy documented on EMR Reaction Allergy Type Onset Date Status amoxicillin Amoxicillin kidney infection Drug Allergy Active REASON FOR VISIT vomiting, nausea Encounters Encounter Location Date Provider Diagnosis [facility] [address] [facility] [address] [facility] [address] [place] [phone] 05/08/2025 Jorge Gaxiola Plan Of Treatment No Information Progress Notes * Carol OROURKE GDOB:1954 (69 yo F)Acc No.[id number]:05/08/2025 Progress Notes Patient: Carol LOZADA Provider: Jama Gaxiola M.D. :1955 A ge:69 Y S ex:Female Date:05/08/2025 Address:[address] [place], [id number] Subjective: * Chief Complaints: * 1 . Vomiting, nausea. * HPI: G astroenterology: 69 year old female presents with c/o Vomiting. * ROS: C ARDIOLOGY: no D izziness. n o C hest pain. D ERMATOLOGY: no R faviola. n o H malathi. U ROLOGY: no D ifficulty urinating. n o B lood in urine. * Medical History: H ypertension, Hypothyroidism, Type [...] . * Social History: C URRENT TOBACCO USE: No . C affeine: yes, frequency:occasionally. Marital Status: . Past smoking status: no. Alcohol: No. * Allergies: A moxicillin: kidney infection. Objective: * Vitals: Assessment: Plan: * Treatment: * Billing Information: * Visit Code: * Procedure Codes: * Electronic signature of Yoly Gaxiola MD on 05/17/2025 at 08:58 AM EDT Sign off status: Pending * Provider: Jama Gaxiola M.D. Date: 05/08/2025 Generated for Alvaro boston/Mark/Kristy on: 05/17/2025 08:58 AM EDT History and Physical Notes * HPI (History of Present Illness) Category Sub-Category Detail Notes Category Not es Gastroenterology Vomiting
--- OUTSIDE RECORDS SUMMARY | 2025-05-17 08:58 | XMS_ITS ---
Author Organization Unknown Vital Signs BpStanding BpSitting BpSupine Date Temperature HeartRate Weight Hei ght Spo2 Respiration Bmi HeadCircumference FieldCount TimeRecorded NeckCircumferen ce WaistCircumference Pulse 140/70 12/26 00:00 :00 98.8 97 200,12. 80 5,3 35.0 1 6 04/30/2025 14:00:00 134/70 11/12 00:00 :00 98.1 88 202,3.2 0 5,3 35.2 5 6 04/30/2025 14:45:00 132/74 09/17 00:00 :00 98.4 89 202,3.2 0 5,3 35.2 5 6 04/30/2025 13:45:00 132/74 09/05 00:00 :00 98.1 91 205,3.2 0 5,3 35.7 8 6 04/30/2025 09:30:00 130/76 05/17 00:00 :00 97.8 100 195,3.2 0 5,3 34.0 3 6 04/30/2025 11:15:00
--- OUTSIDE RECORDS SUMMARY | 2025-05-17 08:58 | XMS_ITS | Patient Health Record ---
Author Organization [facility] Address [address] [place] [id number] Care Team Providers Care Associate Attorney Name Role Phone Khalida Jorge Primary Care Provider Zeina Hale [phone] Allergies Allergen (clinical drug ingredient) Drug/Non Drug Allergy documented on EMR Reaction Allergy Type Onset Date Status amoxicillin Amoxicillin kidney infection Drug Allergy Active Results Component Value Reference Range Notes Mammogram Reviewed date:01/31/2025 04:19:01 PM Interpretation:Negative, annual f/u Performing Lab: Notes/Report: Negative, annual f/u result Negative, annual f/u P-Vitamin D 25-Hydroxy Reviewed date:09/10/2024 11:50:50 AM Interpretation:38.8 Performing Lab: Notes/Report: Test performed by [facility] [address] [place], [place] [address] [address] Geraldo Valderrama MD, [employer] CLIA: [id number] Vitamin D 25-Hydroxy 38.8 30.0-100.0 ng/mL Interpretation of Vitamin D 25 OH: < 20 ng/mL - Deficiency 20 - 29 ng/mL - Insufficiency 30 - 100 ng/mL - Sufficiency > 100 ng/mL - Super-therapeutic- toxicity may occur above this level. Clinical correlation required. P-TSH reflex to FT4 Reviewed date:09/10/2024 11:50:50 AM Interpretation:0.24 Performing Lab: Notes/Report: Test performed by [facility] [address] [place], [place] [address] [address] Geraldo Valderrama MD, [employer] CLIA: [id number] TSH reflex to FT4 0.24 0.43-5.25 mU/L P-Comprehensive Metabolic Pa rosa (CMP) Reviewed date:09/10/2024 11:50:50 AM Interpretation:gluc 147, Cr 1.05, gfr 58 Performing Lab: Notes/Report: Test performed by [facility] [address] [place] [address] , [address], [place] [address] Geraldo Valderrama MD, [employer] CLIA: [id number] Sodium 143 135-145 mmol/L Potassium 4.2 3.5-5.3 mmol/L Chloride 107 97-108 mmol/L CO2 28 22-32 mmol/L Glucose 147 65-99 mg/dL BUN 12 8-23 mg/dL Creatinine 1.05 0.50-1.00 mg/dL Calcium 8.9 8.6-10.4 mg/dL eGFR by Creatinine 58 >59 mL/min/1.73m2 Protein 6.7 6.0-8.3 g/dL Albumin 3.8 3.5-5.3 g/dL Alkaline Phosphatase 90 35-121 IU/L ALT (SGPT) 8 <5-47 IU/L AST (SGOT) 13 <5-40 IU/L Bilirubin, Total 0.5 <0.2-1.2 mg/dL A/G Ratio 1.3 1.1-2.5 P-Vitamin B12 Reviewed date:09/10/2024 11:50:50 AM Interpretation:1469 Performing Lab: Notes/Report: Test performed by [facility] [address] [place] [address] , [address], [place] [address] Geraldo Valderrama MD, [employer] CLIA: [id number] Vitamin B12 2602 402-1262 pg/mL Glycohemoglobin A1c (in hous e) Reviewed date:09/10/2024 11:50:50 AM Interpretation:5.7 Performing Lab: Notes/Report: 5.7 glycohemoglobin 5.7% 5 - 6.5 % CBC Venipuncture (in house) Reviewed date:09/10/2024 10:40:55 AM Interpretation:Normal Performing Lab: Notes/Report: Normal wbc 4.4 3.5 - 10 lymph 23.4% 15 - 50 mid 6.3% 2 - 15 gran 70.3% 35 - 80 rbc 4.25 3.5 - 5.5 hgb 12.3 11.5 - 16.5 hct 36.2 35 - 55 mcv 85.1 75 - 100 mch 29.1 25 - 35 mchc 34.1 31 - 38 platlet 120 100 - 400 Glucose (In-House) Reviewed date:09/10/2024 11:50:50 AM Interpretation:175 Performing Lab: Notes/Report: 175 blood glucose 175 74 - 106 mg/dL P-T4 Free (thyroxine) Reviewed date:09/10/2024 11:50:50 AM Interpretation:Normal Performing Lab: Notes/Report: Test performed by [facility] [address] [place] [address] , [address] , [place] [address] Geraldo Valderrama MD, [employer] CLIA: [id number] Thyroxine Free (free T4) 1.54 0.86-1.76 ng/dL Influenza Screen (in house) Reviewed date:09/18/2024 11:02:23 AM Interpretation: Performing Lab: Notes/Report: results Neg CBC Fingerstick (in house) Reviewed date:09/18/2024 11:02:30 AM Interpretation: Performing Lab: Notes/Report: wbc 7.3 3.5 - 10 lym 20.8% 15 - 50 mid 6.1% 2 - 15 gran 73.1% 35 - 80 rbc 4.53 3.5 - 5.5 hgb 12.8 11.5 - 16.5 hct 39.3 35 - 55 mcv 86.9 75 - 100 mch 28.2 25 - 35 mchc 32.5 31 - 38 plat 79 100 - 400 Covid test (in house) Reviewed date:09/18/2024 11:02:17 AM Interpretation: Performing Lab: Notes/Report: Result: Pos CBC Venipuncture (in house) Reviewed date:11/12/2024 03:14:33 PM Interpretation: Performing Lab: Notes/Report: wbc 7.6 3.5 - 10 lymph 21.2% 15 - 50 mid 6.4% 2 - 15 gran 72.4% 35 - 80 rbc 4.47 3.5 - 5.5 hgb 12.8 11.5 - 16.5 hct 38.6 35 - 55 mcv 86.4 75 - 100 mch 28.7 25 - 35 mchc 33.3 31 - 38 platlet 107 100 - 400 CBC Fingerstick (in house) Reviewed date:12/26/2024 04:21:54 PM Interpretation: Performing Lab: Notes/Report: wbc 5.2 3.5 - 10 lym 16.1% 15 - 50 mid 4.6% 2 - 15 gran 79.3% 35 - 80 rbc 4.38 3.5 - 5.5 hgb 12.5 11.5 - 16.5 hct 36.7 35 - 55 mcv 83.9 75 - 100 mch 28.6 25 - 35 mchc 34.1 31 - 38 plat 58 100 - 400 H-URI Panel-mini (Rhino,flu A/B, RSV, Covid) Reviewed date:12/26/2024 05:21:26 PM Interpretation: Performing Lab: Notes/Report: RHINOPCR Not Detected NotDetected INFLUAPCR Detected NotDetected INFLUB Not Detected NotDetected RSVPCR Not Detected NotDetected COVIDHMH Not Detected NotDetected Effective 07/21/21, Positive covid results will no longer be called to the ordering physician. Infection control and the physician?s office will continue to report positive covid results to the local Health Department as required. This assay is for in vitro diagnostic use under FDA Emergency Use Authorization only. Negative results do not preclude infection with SARS CoV 2 virus and should not be the sole basis of a patient treatment/management or public health decision. Follow up testing should be performed according to the current CDC recommendations. Urinalysis - Inhouse Reviewed date:05/02/2025 12:41:42 PM Interpretation: Performing Lab: Notes/Report: Color/Clarity dark yellow/clear Leuk Neg Nitrite Neg Urobili 3.2 Protein Trace pH 5.5 Blood Neg Sp. Gr. 1.025 Ketone 2+ Bili 1+ Gluc 2+ P-Culture, Urine Reviewed date:05/07/2025 09:19:52 AM Interpretation:no growth Performing Lab: Notes/Report: Test performed by [facility] [address] [place] [address] , [address], [place] [address] Geraldo Valderrama MD, [employer] CLIA: [id number] Specimen Source Urine - Void Culture, Urine See Below Final Report : No growth Reason For Referral No Information Medications Medication SIG (Take, Route, Frequency, Duration) Notes Start Date End Date Status Diflucan 150 MG 1 tablet Orally maxim y for 1 days 05/02/2025 Active valACYclovir HCl 1 GM 2 tablets Orally t wice a day for 1 days 05/02/2025 Active Metoclopramide HCl 5 MG 1 mL before meal s Orally four times a day as needed for 90 days Active Accu-Chek Guide w/Device as directed for 30 day(s) 01/04/2024 Active Atorvastatin Calcium 20 MG 1 tab(s) oral ly once a day (at bedtime) for 90 days Active Lisinopril 10 MG 1 tab(s) orally once a day for 90 days Active metFORMIN HCl ER 500 MG 2 tab(s) orally Two times a day for 90 days Active Levothyroxine Sodium 88 MCG 1 tab(s) ora lly once a day for 90 days Active DropSafe Alcohol Prep 70 % USE DIRECT ED TWO TIMES DAILY for 90 Active Meclizine HCl 25 MG 1 tab(s) orally 3 ti mes a day prn Active Ondansetron HCl 4 MG 1 tab(s) orally iliana ry 8 hours as needed 04/15/2023 Active Accu-Chek Guide Test - TEST BLOOD SUGAR EVERY DAY OR DIRECTED for 90 Active Ozempic (1 MG/DOSE) 4 MG/3ML 1 mg Subcutaneous once weekly 05/03/2024 Active Accu-Chek Softclix Lancets - TEST BLOOD SUGAR EVERY DAY OR DIRECTED for 90 Active busPIRone HCl 10 MG TAKE 1 TABLET TWICE DAILY for 30 Active Immunizations Vaccine Route Administration Date Status Comme nts COVID 19 Oneil Unknown 07/01/2021 Administered COVID 19 Oneil Unknown 10/28/2021 Administered DT, 7 YEARS OR OLDER Unknown 02/07/1997 Administered Fluzone High Dose (65yr and older) IM Intramuscular 11/13/2022 Administered Prevnar (PCV20) IM Intramuscular 11/13/2022 Administered Problems Problem Type SNOMED Code ICD Code Onset Dates Problem Status W/U Status Risk Notes Problem Gastroesophageal reflux disease (673761615) GERD (gastroesophageal reflux disease) (K21.9) Active confirmed Problem 41729686 Type 2 diabetes mellitus with other circulatory complications (E11.59) Active confirmed Problem Hypertension (48915575) HTN (hypertension) (I10) Active confirmed Problem 51118664 Vitamin D defici ency (E55.9) Active confirmed Problem Type II diabetes mellitus without complication (135254062) Type 2 diabetes mellitus without complication (E11.9) Active confirmed Problem 834409522 Acquired hypothyroidism (E03.9) Active confirmed Problem 91065036 Hypersomnia (G47.10) Active confirmed Problem 4753152 Herpes labialis (B00.1) Active confirmed Problem 139141794 Gastritis and duodenitis (K29.90) Active confirmed Problem 440031384 Pure hypercholesterolemia (E78.00) Active confirmed Problem 31823203 Carpal tunnel sy ndrome on both sides (G56.03) Active confirmed Problem 09912400 Carotid stenosis , asymptomatic, bilateral (I65.23) Active confirmed Problem 791004176 Non morbid obesi ty (E66.9) Active confirmed Problem 28551509 Atrophic gastrit is without hemorrhage (K29.40) Active confirmed Problem 457611891 Clostridium diff icile enterocolitis (A04.72) Active confirmed Vital Signs Heart Rate 87 /min 05/02/2025 Blood pressure diastolic 70 mm Hg 05/02/2025 Height 63.50 in 05/02/2025 Blood pressure systolic 140 mm Hg 05/02/2025 Weight 199 lbs 05/02/2025 BMI 34.69 kg/m2 05/02/2025 Encounters Encounter Location Date Provider Diagnosis [facility] [address] [place], [place] [id number] 05/17/2024 Jorge Tenmile Vertigo R42 and Simp le varicose veins I83.90 [facility] [address] [place], [place] [id number] 09/05/2024 Jorge Tenmile Type 2 diabetes sondra itus without complication E11.9 ; HTN (hypertension) I10 ; Fatigue, unspecified type R53.83 ; B12 deficiency E53.8 ; Vitamin D deficiency E55.9 ; Hypersomnia G47.10 and Non morbid obesity E66.9 [facility] [address] [place], [place] [id number] 09/17/2024 Jorge Tenmile COVID-19 U07.1 [facility] [address] [place], [place] [id number] 11/12/2024 Jorge Tenmile Acute URI J06.9 [facility] [address] [place], [place] [id number] 12/26/2024 Jorge Tenmile Acute URI J06.9 ; Na usea R11.0 ; Influenza A J10.1 and Acute upper respiratory infection, unspecified J06.9 [facility] [address] [place], [place] [id number] 05/02/2025 Jorge Tenmile Dysuria R30.0 ; Herp es labialis B00.1 ; Excessive wax in left ear H61.22 ; Type 2 diabetes mellitus without complication E11.9 ; Acquired hypothyroidism E03.9 ; Pure hypercholesterolemia E78.00 ; HTN (hypertension) I10 ; Type 2 diabetes mellitus with diabetic mononeuropathy, unspecified whether intermediate accountant insulin use E11.41 ; Type 2 diabetes mellitus with other circulatory complications E11.59 and Non morbid obesity E66.9 [facility] [address] [place], [place] [id number] 08/03/2024 Jorge Tenmile [facility] [address] [place], [place] [id number] 08/14/2024 Jorge Tenmile [facility] [address] [place], [place] [id number] 09/10/2024 Jorge Tenmile [facility] [address] [place], [place] [id number] 09/18/2024 Jorge Tenmile [facility] [address] [place], [place] [id number] 02/23/2025 Jorge Tenmile [facility] [address] [place], [place] [id number] 05/04/2025 Jorge Tenmile Osteopenia M85.80 Assessments Encounter Date Diagnosis (ICD Code) Assessment Notes Treatment Notes Treatment Clinical Notes Section Notes 05/17/2024 Vertigo (ICD-10 - R42) 05/17/2024 Simple varicose vein s (ICD-10 - I83.90) Compression stockings recommended 09/05/2024 HTN (hypertension) (ICD-10 - I10) 09/05/2024 Type 2 diabetes mellitus without complication (ICD-10 - E11.9) 09/17/2024 COVID-19 (ICD-10 - U07.1) 11/12/2024 Acute URI (ICD-10 - J06.9) 12/26/2024 Acute URI (ICD-10 - J06.9) 12/26/2024 Nausea (ICD-10 - R11.0) 05/02/2025 Dysuria (ICD-10 - R30.0) 05/02/2025 Herpes labialis (ICD -10 - B00.1) 05/04/2025 Osteopenia (ICD-10 - M85.80) 05/02/2025 Excessive wax in lef t ear (ICD-10 - H61.22) 12/26/2024 Influenza A (ICD-10 - J10.1) 09/05/2024 Fatigue, unspecified type (ICD-10 - R53.83) 09/05/2024 B12 deficiency (ICD- 10 - E53.8) 12/26/2024 Acute upper respirat ory infection, unspecified (ICD-10 - J06.9) 05/02/2025 Type 2 diabetes mellitus without complication (ICD-10 - E11.9) 05/02/2025 Acquired hypothyroid ism (ICD-10 - E03.9) 09/05/2024 Vitamin D deficiency (ICD-10 - E55.9) 09/05/2024 Hypersomnia (ICD-10 - G47.10) 05/02/2025 Pure hypercholesterolemia (ICD-10 - E78.00) 05/02/2025 HTN (hypertension) (ICD-10 - I10) 09/05/2024 Non morbid obesity (ICD-10 - E66.9) 05/02/2025 Type 2 diabetes mellitus with diabetic mononeuropathy, unspecified whether intermediate accountant insulin use (ICD-10 - E11.41) 05/02/2025 Type 2 diabetes mellitus with other circulatory complications (ICD-10 - E11.59) 05/02/2025 Non morbid obesity (ICD-10 - E66.9) Plan Of Treatment Pending Test Test Name Order Date Bone density 05/04/2025 sleep study 09/05/2024 Insurance Providers Payer Name Payer Address Payer Phone Subscriber Number Group Number Insured Name Patient Relationship to Insured Coverage Start Date Coverage End Date [employer] (MEDICAR E) [address] [address] [place] [phone] [id number] Carol Orourke Self - patient is the insured Medications Administered Medication Instructions Date of Administration Dosage Notes B-12 05/20/2020 1 mL B-12 06/02/2020 1 mL Medical (General) History Medical History History ICD Code Hypertension Hypothyroidism Type [address], Neg, 05/2014 20-29% carotid stenosis 12/2016 EMG/NCV Bilateral Moderate Carpel Tunnel , 01/10/2017 Declared disabled 2021 due to chron ic vertigo Vitamin B 12 deficiency Vitamin D deficiency Surgical History Surgery Date(Month/Year) Hysterectomy Abdominal 2000 Tubal Cataract x2 02/2023 colonoscopy 07/18/2020
--- NOTE | 2025-05-17 08:59 | XR_ITS ---
FINAL REPORT TECHNIQUE: Bone densitometry calculations of the lumbar spine and bilateral hips were obtained. CLINICAL HISTORY: SCREENING COMPARISON: None FINDINGS: Using L1-4, the bone mineral density of the spine is 0.867 g/cm2, corresponding to T-score of -1.6 and a Z score of 0.3. This is within the range of osteopenia. Using the left hip, the bone mineral density of the femoral neck is 0.550 g/cm2, corresponding to a T-score of -2.7 and a Z-score of -1.0. This is within the range of osteoporosis. Using the right hip, the bone mineral density of the femoral neck is 0.550 g/cm?, corresponding to a T-score of -2.7 and a Z-score of -1.0. This is within the range of osteoporosis. NOTE: T-score: Standard deviation compared with peak bone mass of young adult mean. *Following the recommendations of the International Society of Bone densitometry, classification of hip BMD is based on the lower of two T-scores; total hip or femoral neck. IMPRESSION: 1. Bone mineral density of the lumbar spine within the range of osteopenia. 2. Bone mineral density of the bilateral femoral necks within the range of osteoporosis. Reviewed, Interpreted and Dictated by Isha Sim MD Transcribed by Elva Sanchez Authenticated and [facility]
== END 2025-05-17 23:59 | disposition home or self-care (01) ==
LOC: RAD 08:56
PROVIDERS: PCP Family Medicine; Visit Provider Family Medicine
DX: M81.0 Age-related osteoporosis without current pathological fracture (principal); M85.88 Other specified disorders of bone density and structure, other site
CPT/HCPCS: 77080